=== PATIENT | male | born 1990 | race Two or more races ===

== ENCOUNTER 2020-06-01 07:34 | Outpatient (CLI) | payer OTHER ==
[2020-06-01] MEDS ORDERED: OMNIPAQUE 350 MG/ML, 100ML BOTTLE ONE (08:44)
== END 2020-06-01 23:59 | disposition home or self-care (01) ==
LOC: RAD 07:34
PROVIDERS: ATTEND Family Medicine Adult Medicine
DX: R59.9 Enlarged lymph nodes, unspecified (principal); R13.10 Dysphagia, unspecified; Z88.0 Allergy status to penicillin
CPT/HCPCS: 70491; Q9967